=== PATIENT | female | born 1975 | race Caucasian/White ===

== ENCOUNTER → 2020-05-13 | Outpatient (CLI) | payer SELFPAY | LOC: M LABSMTC 11:38 | PROVIDERS: ATTEND Pediatrics | DX: Z11.59 Encounter for screening for other viral diseases (principal) ==

== ENCOUNTER → 2022-02-01 | Outpatient (REF) | payer BC ==
[2022-02-01 17:37] LABS: FREE T3 2.5 PG/ML (2.2-4.0)
[2022-02-01 19:25] LABS: FOLLICLE STIMULATING HORMONE 6.4 mIU/mL; LUTEINIZING HORMONE 3.2 mIU/mL; PROGESTERONE 0.81 NG/ML
== END ==
LOC: M LAB REF 16:02
PROVIDERS: ATTEND Family Medicine
DX: E07.9 Disorder of thyroid, unspecified (principal); R53.83 Other fatigue; N94.6 Dysmenorrhea, unspecified

== ENCOUNTER → 2022-09-05 | Outpatient (REF) | payer BC ==
[2022-09-05 19:43] LABS: FOLLICLE STIMULATING HORMONE 9.2 mIU/ML; LUTEINIZING HORMONE 4.5 mIU/ML; PROGESTERONE 2.13 NG/ML
== END ==
LOC: M LAB REF 16:36
PROVIDERS: ATTEND Family Medicine
DX: N95.9 Unspecified menopausal and perimenopausal disorder (principal)

== ENCOUNTER → 2023-09-21 | Outpatient (REF) | payer BC | LOC: M PLALAB 08:24 | PROVIDERS: ATTEND Advanced Practice Midwife | DX: Z01.419 Encounter for gynecological examination (general) (routine) without abnormal findings (principal); Z11.51 Encounter for screening for human papillomavirus (HPV) | CPT/HCPCS: 87624; G0123 ==

== ENCOUNTER → 2023-11-01 | Outpatient (CLI) | payer BC ==
[2023-11-01 19:23] LABS: THYROID STIMULATING HORMONE 1.2 uIU/ML (0.55-4.78)
[2023-11-01 19:24] LABS: FREE T4 1.06 NG/DL (0.89-1.76)
[2023-11-01 19:29] LABS: PROGESTERONE 0.43 NG/ML
== END ==
LOC: M PLALAB 14:56
PROVIDERS: ATTEND Advanced Practice Midwife
DX: N92.6 Irregular menstruation, unspecified (principal)

== ENCOUNTER → 2023-11-01 | Outpatient (REF) | payer BC | LOC: M PLALAB 14:45 | PROVIDERS: ATTEND Advanced Practice Midwife | DX: N89.8 Other specified noninflammatory disorders of vagina (principal) ==

== ENCOUNTER → 2024-01-18 | Outpatient (REF) | payer BC | LOC: M PLALAB 11:06 | PROVIDERS: ATTEND Advanced Practice Midwife | DX: N95.1 Menopausal and female climacteric states (principal); R39.89 Other symptoms and signs involving the genitourinary system; Z53.9 Procedure and treatment not carried out, unspecified reason ==

== ENCOUNTER → 2024-02-12 | Outpatient (CLI) | payer BC | LOC: M WHC 10:37 | PROVIDERS: ATTEND Advanced Practice Midwife | DX: N95.1 Menopausal and female climacteric states (principal); R39.89 Other symptoms and signs involving the genitourinary system; N88.8 Other specified noninflammatory disorders of cervix uteri; R93.89 Abnormal findings on diagnostic imaging of other specified body structures ==

== ENCOUNTER 2024-12-13 06:41 | Day surgery (SDC) | payer OTHER ==
[~2024-12-13] VITALS: Ht 160 cm; Wt 69.9 kg
[2024-12-13] MEDS ORDERED: LIDOCAINE 2% INJ 100 MG/5 ML SYRINGE As Ordered ONE (07:18)
[2024-12-13 08:25] VITALS: BP 118/79; TEMP 97.1; O2SAT 97
== END 2024-12-13 08:25 | disposition home or self-care (01) ==
LOC: M OPP 06:41
PROVIDERS: ATTEND Surgery
DX: Z12.11 Encounter for screening for malignant neoplasm of colon (principal); D12.6 Benign neoplasm of colon, unspecified